=== PATIENT | male | born 1995 | race Caucasian/White ===

== ENCOUNTER 2019-11-26 22:15 | Emergency (ER) | payer BC, OTHER ==
[~2019-11-26] VITALS: Ht 185.4 cm; Wt 88.5 kg
--- NOTE | 2019-11-26 22:24 | NUR ---
ED Nurse Note: Patient walked in from home d/t left foot injury, patient reports he stepped on a metal sharp object at home walking barefoot. Denies pain. Patient aao x 4 and ambulatory. Patient stable upon assessment.
[2019-11-26] MEDS ORDERED: Tetanus/Diptheria/Pertussis IM ONE (22:30)
[2019-11-26] MEDS ORDERED: Neosporin Oint Ud Pkt TOPIC ONE (22:30)
[2019-11-26] MEDS ORDERED: CEPHALEXIN500 M1 ORAL (22:31)
--- NOTE | 2019-11-26 22:31 | Emergency Room Report ---
History of Present Illness General Chief Complaint: Lower Extremity Injury Source: Patient Present Illness HPI 24-year-old male with no past medical history. He presents with chief complaint of injury to his left foot. He was barefooted on the top of the roof and accidentally kicked a metal piece. He sustained an abrasion to the side of his foot. This occur less than an hour prior to arrival. No other injury. No active bleeding. Pain is 5 out of 10. Worse with walking. Better with rest. Allergies: Coded Allergies: No Known Allergies (Unverified , 11/26/19) COVID-19 Screening Contact w/high risk pt: No Experienced COVID-19 symptoms?: No COVID-19 Testing performed PHYSICIAN OFFICE SECRETARY: No Patient History Past Medical History: see triage record, old chart reviewed Past Surgical History: none Pertinent Family History: none Social History: Denies: smoking Immunizations: other Reviewed Nursing Documentation: PMH: Agreed; PSxH: Agreed Nursing Documentation-PMH Past Medical History: No Stated History Review of Systems Eye: Denies: eye pain, blurred vision ENT: Denies: ear pain, nose congestion, throat swelling Respiratory: Denies: cough, shortness of breath Cardiovascular: Denies: chest pain, palpitations Gastrointestinal: Denies: abdominal pain, diarrhea, nausea, vomiting Musculoskeletal: Denies: back pain, joint pain Skin: Denies: rash Neurological: Denies: headache, numbness Endocrine: Denies: increased thirst, increased urine Hematologic/Lymphatic: Denies: easy bruising All Other Systems: negative except mentioned in HPI Physical Exam Vital Signs Date Time Temp Pulse Resp B/P (MAP) Pulse Ox O2 Delivery O2 Flow Rate FiO2 11/26/19 22:18 97.3 72 16 124/78 (93) 96 Room Air Vitals normal Sp02 EP Interpretation: reviewed, normal General Appearance: well appearing, no apparent distress, alert Head: normocephalic, atraumatic Eyes: bilateral eye PERRL, bilateral eye EOMI ENT: hearing grossly normal, normal pharynx Neck: full range of motion, supple, no meningismus Respiratory: chest non-tender, lungs clear, normal breath sounds Cardiovascular #1: regular rate, rhythm, no murmur Gastrointestinal: normal bowel sounds, non tender, no mass, no organomegaly, no bruit, non-distended Musculoskeletal: back normal, normal range of motion, gait/station normal, other - Left foot: On the inner aspect of the foot there is a 5 cm abrasion. No active bleeding. Nothing to be sutured. No foreign body. Psychiatric: mood/affect normal Medical Decision Making Diagnostic Impression: Primary Impression: Abrasion, left foot, initial encounter ER Course Patient with abrasion to the left foot. No foreign body. Nothing to be sutured. Last Vital Signs Date Time Temp Pulse Resp B/P (MAP) Pulse Ox O2 Delivery O2 Flow Rate FiO2 11/26/19 22:18 97.3 72 16 124/78 (93) 96 Room Air Status: improved Disposition: HOME, SELF-CARE Condition: Stable Scripts Cephalexin* (KEFLEX*) 500 Mg Tablet 500 MG ORAL TID, #21 CAP Prov: Dewayne Cuadra MD 11/26/19 Additional Instructions: Keep wound clean. Clean first with hydroperoxide and apply antibiotic ointment. Follow-up with your doctor in 7 days for recheck. Return if worse. Dewayne Cuadra MD Nov 26, 2019 22:31
[2019-11-26] MEDS ORDERED: Hydrogen Peroxide 473ml Bottle TOPIC ONE (22:32)
[2019-11-26 22:37] VITALS: BP 122/75
--- NOTE | 2019-11-26 22:37 | NUR ---
ER DISCHARGE NOTE: Patient is cleared to be discharged per ERMD, pt is aox4, on room air, with stable vital signs. pt was given dc and prescription instructions, pt was able to verbalize understanding, pt id band removed. pt is able to ambulate with steady gait. pt took all belongings. pt wound cleaned and dressed by darkroom technician. Patient stable upon discharge.
== END 2019-11-26 22:37 | disposition home or self-care (01) ==
LOC: EMR 22:35
DX: S90.812A Abrasion, left foot, initial encounter (principal); W22.8XXA Striking against or struck by other objects, initial encounter; Y93.9 Activity, unspecified; Y92.9 Unspecified place or not applicable; Z23 Encounter for immunization
CPT/HCPCS: 90471; 90715; 99282